=== PATIENT | male | born 1995 | race Caucasian/White ===

== ENCOUNTER → 2024-08-20 06:17 | Day surgery (SDC) | payer BC, SELFPAY | LOC: GI 06:17 | PROVIDERS: ATTENDING PHYSICIAN Specialist | DX: R13.10 Dysphagia, unspecified (principal); K22.89 Other specified disease of esophagus; K20.0 Eosinophilic esophagitis | CPT/HCPCS: 43249; 43239; 88305 ==

== ENCOUNTER 2025-01-31 06:17 | Day surgery (SDC) | payer BC, SELFPAY | END 2025-01-31 15:12 | disposition home or self-care (01) | LOC: GI 06:17 | PROVIDERS: ATTENDING PHYSICIAN Specialist | DX: K20.0 Eosinophilic esophagitis (principal) | CPT/HCPCS: 43239; 88305 ==